=== PATIENT | male | born 1955 | race Caucasian/White ===

== ENCOUNTER 2018-09-15 14:08 | Outpatient (CLI) | payer BC ==
--- NOTE | 2018-09-15 16:07 | RAD ---
PA AND LATERAL CHEST X-RAY 09/15/18 HISTORY: Wheezing. COMPARISON: 08/11/16. FINDINGS: The cardiac silhouette and pulmonary vasculature are within normal limits. The lungs are clear. 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 Atelectasis noted at each lung base on the prior stud y as resolved. No other interval change. IMPRESSION: No acute cardiopulmonary process. POS: [facility]
== END 2018-09-15 14:09 | disposition home or self-care (01) ==
LOC: RAD-FRANK 14:08
PROVIDERS: ATTEND Nurse Practitioner Family
DX: R06.2 Wheezing (principal)
CPT/HCPCS: 71046

== ENCOUNTER 2019-01-10 09:12 | Outpatient (CLI) | payer MEDICARE ==
--- NOTE | 2019-01-10 11:23 | RAD ---
LUMBAR SPINE SERIES 3 VIEWS: Date: 01/10/19 HISTORY: Low back pain. FINDINGS: Prominent degenerative osteophytic changes of the spine are noted. There is mild to moderate disc una rowing at all vertebral body levels. There is a Grade I spondylolisthesis of L4 on L5, which appears to be related to prominent degenerative facet changes. There is a retrolisthesis of L2 on L3. Pedicle s appear intact. There is a calcification in the right upper quadrant of the abdomen, possibly a gall stone. IMPRESSION: Marked arthritic changes of the spine. POS: [facility]
== END 2019-01-10 09:13 | disposition home or self-care (01) ==
LOC: RAD-FRANK 09:12
PROVIDERS: ATTEND Nurse Practitioner Family
DX: S39.012A Strain of muscle, fascia and tendon of lower back, initial encounter (principal); M47.816 Spondylosis without myelopathy or radiculopathy, lumbar region
CPT/HCPCS: 72100

== ENCOUNTER 2020-04-18 08:44 | Outpatient (CLI) | payer MEDICARE ==
--- NOTE | 2020-04-18 08:57 | RAD ---
EXAM: Single view of the abdomen HISTORY: Abdominal pain COMPARISON: None FINDINGS: Single view of the abdomen shows a nonspecific, nonobstructive bowel gas pattern. No suspi cious calcifications are seen. Degenerative changes are seen in the spine. IMPRESSION: Unremarkable exam
== END 2020-04-18 08:45 | disposition home or self-care (01) ==
LOC: RAD-FRANK 08:44
PROVIDERS: ATTEND Nurse Practitioner Family
DX: M79.10 Myalgia, unspecified site (principal); M79.18 Myalgia, other site
CPT/HCPCS: 74018

== ENCOUNTER 2020-05-10 13:51 | Outpatient (CLI) | payer MEDICARE ==
--- NOTE | 2020-05-10 15:03 | ULT ---
COMPLETE ABDOMEN ULTRASOUND INDICATION: History of renal stones TECHNIQUE: Grayscale, color Doppler and spectral Doppler were obtained of the abdomen. Additional gra yscale images were obtained of the bladder. COMPARISON: None FINDINGS: Liver: Overlying bowel gas slightly limits image detail. Main portal vein: Patent with appropriate hepatopedal flow Pancreas: Pancreas is largely obscured by overlying bowel gas Gallbladder: There is a focus of shadowing echogenicity seen within the wall of the gallbladder which may reflect sequela of wall calcification related to chronic cholecystitis or porcelain gallbladder. The gallbladder is partially decompressed. Common bile duct:4.8 mm. Right kidney: The right kidney measured 10.0 x 5.5 x 5.8 cm. No focal renal lesion or hydronephrosis is evident. The right renal cortical thickness was 1.7 cm. Left kidney: The left kidney measured 11.4 x 5.1 x 5 cm. No focal renal lesion or hydronephrosis is d emonstrated. The left renal cortical thickness was 1.8 cm. Aorta and IVC: The proximal abdominal aorta wasn't well seen. The mid to distal abdominal aorta are w ithin normal limits. Visualized aspects of the IVC. Within normal limits. Spleen: 10cm in length. No focal splenic lesion is evident. Free fluid: None. The prevoid bladder volume was 99 cc. The post void bladder volume was 6 cc. No intraluminal mass is evident within the bladder. IMPRESSION: 1. No focal renal lesion or hydronephrosis. 2. Shadowing echogenicity in the wall of the gallbladder is suspicious for wall calcification possibl y related to chronic cholecystitis or worsen gallbladder. Would recommend consideration for a CT of the abdomen for further evaluation. 3. Some limitations to the exam due to overlying bowel gas. 4. Visualized bladder appears within normal limits. Minimal post void residual.
--- NOTE | 2020-05-10 15:03 | ULT ---
Please see the separately dictated, concurrently performed complete abdomen ultrasound for details co ncerning the bladder.
== END 2020-05-10 13:52 | disposition home or self-care (01) ==
LOC: BICULT 13:51
PROVIDERS: ATTEND Urology
DX: N20.0 Calculus of kidney (principal); R93.2 Abnormal findings on diagnostic imaging of liver and biliary tract
CPT/HCPCS: 76856; 93975

== ENCOUNTER 2020-11-22 10:47 | Outpatient (CLI) | payer MEDICARE | END 2020-11-22 10:48 | disposition home or self-care (01) | LOC: BICRAD 10:47 | PROVIDERS: ATTEND Urology | DX: N20.0 Calculus of kidney (principal) | CPT/HCPCS: 74018 ==

== ENCOUNTER 2020-12-31 13:04 | Outpatient (CLI) | payer MEDICARE | END 2020-12-31 13:05 | disposition home or self-care (01) | LOC: BICMRI 13:04 | PROVIDERS: ATTEND Podiatrist Foot & Ankle Surgery | DX: M76.61 Achilles tendinitis, right leg (principal); S86.012A Strain of left Achilles tendon, initial encounter; M92.61 Juvenile osteochondrosis of tarsus, right ankle | CPT/HCPCS: 70210 ==

== ENCOUNTER 2022-02-04 11:45 | Outpatient (CLI) | payer MEDICARE | END 2022-02-04 11:46 | disposition home or self-care (01) | LOC: MRI 11:45 | PROVIDERS: ATTEND Psychiatry & Neurology Neurology | DX: G95.9 Disease of spinal cord, unspecified (principal); M48.02 Spinal stenosis, cervical region; M50.00 Cervical disc disorder with myelopathy, unspecified cervical region; E53.1 Pyridoxine deficiency | CPT/HCPCS: 72141; 84207 ==

== ENCOUNTER 2022-03-18 07:39 | Outpatient (CLI) | payer MEDICARE | END 2022-03-18 07:40 | disposition home or self-care (01) | LOC: TBSIIMAG 07:39 | PROVIDERS: ATTEND Neurological Surgery | DX: R53.1 Weakness (principal); I67.89 Other cerebrovascular disease | CPT/HCPCS: 70551 ==

== ENCOUNTER 2022-05-05 08:50 | Outpatient (CLI) | payer MEDICARE | END 2022-05-05 08:51 | disposition home or self-care (01) | LOC: LABBT 08:50 | PROVIDERS: ATTEND Surgery | DX: Z01.812 Encounter for preprocedural laboratory examination (principal); M50.10 Cervical disc disorder with radiculopathy, unspecified cervical region; M50.00 Cervical disc disorder with myelopathy, unspecified cervical region; M48.02 Spinal stenosis, cervical region; Z20.822 Contact with and (suspected) exposure to COVID-19 | CPT/HCPCS: 80048; 85027; 85610; 85730; 86850; 86900; 86901; 87811 ==

== ENCOUNTER 2022-10-31 12:26 | Outpatient (CLI) | payer MEDICARE | END 2022-10-31 12:27 | disposition home or self-care (01) | LOC: TBSIIMAG 12:26 | PROVIDERS: ATTEND Surgery | DX: M43.16 Spondylolisthesis, lumbar region (principal); M48.04 Spinal stenosis, thoracic region; M51.24 Other intervertebral disc displacement, thoracic region; M47.894 Other spondylosis, thoracic region; M51.16 Intervertebral disc disorders with radiculopathy, lumbar region; M48.062 Spinal stenosis, lumbar region with neurogenic claudication; M25.78 Osteophyte, vertebrae; M47.26 Other spondylosis with radiculopathy, lumbar region | CPT/HCPCS: 72100; 72148 ==

== ENCOUNTER 2022-12-23 10:55 | Outpatient (CLI) | payer MEDICARE | END 2022-12-23 10:56 | disposition home or self-care (01) | LOC: DTY/OP 10:55 | PROVIDERS: ATTEND Surgery | DX: E66.01 Morbid (severe) obesity due to excess calories (principal) | CPT/HCPCS: 97802 ==